=== PATIENT | male | born 1960 | race Caucasian/White ===

== ENCOUNTER 2017-03-31 10:57 | Emergency (ER) | payer SELFPAY ==
[2017-03-31] MEDS ORDERED: Dexamethasone 4 mg/ml Vial ONE (11:12)
== END 2017-03-31 11:40 | disposition home or self-care (01) ==
LOC: ERS 10:57
DX: L50.9 Urticaria, unspecified (principal); F17.210 Nicotine dependence, cigarettes, uncomplicated
CPT/HCPCS: 96372; J1100